=== PATIENT | male | born 2000 | race Caucasian/White ===

== ENCOUNTER 2019-02-28 16:10 | Emergency (ER) | payer MEDICAID ==
[~2019-02-28] VITALS: Ht 190.5 cm; Wt 112.9 kg
[2019-02-28 16:25] VITALS: Ht 190.5 cm; Wt 112.9 kg
[2019-02-28 18:22] LABS: BASOPHIL % 0.4 % (0-2); PLATELET COUNT 259 x10^3mcL (130-400); RED CELL DISTRIBUTION WIDTH 13.5 % (11.5-14.5)
[2019-02-28 18:29] LABS: CALCIUM 9.2 mg/dL (8.5-10.1); CARBON DIOXIDE 29.6 mmol/L (21-32); CHLORIDE SERUM 104 mmol/L (98-107); CREATININE SERUM 0.9 mg/dL (0.7-1.3); GFR1 > 60 mL/min; GLUCOSE SERUM 99 mg/dL (74-106); POTASSIUM SERUM 4.1 mmol/L (3.5-5.1); SODIUM SERUM 140 mmol/L (136-145)
[2019-02-28 18:33] LABS: ALBUMIN 4.1 g/dL (3.4-5.0); ALKALINE PHOSPHATASE 83 U/L (46-116); ALT/SGPT 25 U/L (16-63); AST/SGOT 16 U/L (15-37); BILIRUBIN TOTAL 0.41 mg/dL (0.20-1.00); LIPASE 84 IU/L (73-393); TOTAL PROTEIN, SERUM 7.5 g/dL (6.4-8.2)
[2019-02-28 19:30] VITALS: BP 121/79
== END 2019-02-28 19:30 | disposition home or self-care (01) ==
LOC: ED 16:10
PROVIDERS: Emergency Medicine
DX: K52.9 Noninfective gastroenteritis and colitis, unspecified (principal); R07.89 Other chest pain
CPT/HCPCS: 87804; J2405

== ENCOUNTER → 2019-03-11 | Outpatient (CLI) | payer MEDICAID | END | disposition home or self-care (01) | LOC: RD 15:48 | DX: S82.892A Other fracture of left lower leg, initial encounter for closed fracture (principal); X58.XXXA Exposure to other specified factors, initial encounter; Y92.9 Unspecified place or not applicable ==